=== PATIENT | female | born 1970 | race Caucasian/White ===

== ENCOUNTER → 2016-11-08 | Outpatient (CLI) | payer OTHER ==
[~2016-11-08] VITALS: Ht 167.6 cm; Wt 84.1 kg
[2016-11-08] VITALS (7 sets, daily range): BP systolic 114–155; BP diastolic 60–81; PULSE 67–70
[~2016-11-08] MED LIST: SINGULAIR 110 MG/TAB PO; ZYRTEC ALLERGY10 MG PO
== END ==
LOC: COL.RAD 11:56
DX: R91.1 Solitary pulmonary nodule (principal)
CPT/HCPCS: J2250

== ENCOUNTER → 2016-12-29 | Outpatient (CLI) | payer OTHER | LOC: COL.PUL 12-08 10:00 | DX: J45.909 Unspecified asthma, uncomplicated (principal) | CPT/HCPCS: J7674 ==

== ENCOUNTER 2017-01-11 09:24 | Outpatient (CLI) | payer OTHER ==
[~2017-01-11] VITALS: Ht 167.6 cm; Wt 85.9 kg
[2017-01-11] VITALS (12 sets, daily range): BP systolic 113–138; BP diastolic 37–86; PULSE 58–81
== END 2017-01-11 13:15 | disposition home or self-care (01) ==
LOC: COL.RAD 09:24
DX: R91.1 Solitary pulmonary nodule (principal); J45.909 Unspecified asthma, uncomplicated; G47.33 Obstructive sleep apnea (adult) (pediatric); R04.89 Hemorrhage from other sites in respiratory passages

== ENCOUNTER → 2020-12-06 | Outpatient (CLI) | payer OTHER ==
[2020-12-06 09:29] LABS: FASTING GLUCOSE 104 mg/dL (70-110)
[2020-12-06 09:48] LABS: MAGNESIUM 1.9 mg/dL (1.6-2.3)
[2020-12-06 10:19] LABS: 1/2 HR GLUCOSE 176 mg/dL (100-170)
[2020-12-06 10:46] LABS: 1 HR GLUCOSE 195 mg/dL (90-160)
[2020-12-06 20:00] LABS: FOLATE (FOLIC ACID) 11.7 ng/mL (2.0-20.0)
[2020-12-11 12:43] LABS: VITAMIN B1 149 nmol/L (70-180)
== END ==
LOC: COL.LAB 08:42
PROVIDERS: Psychiatry & Neurology Neurology
DX: G62.9 Polyneuropathy, unspecified (principal); E55.9 Vitamin D deficiency, unspecified; R73.02 Impaired glucose tolerance (oral); M79.7 Fibromyalgia; E53.9 Vitamin B deficiency, unspecified; E61.1 Iron deficiency; E53.1 Pyridoxine deficiency; E53.8 Deficiency of other specified B group vitamins; E61.2 Magnesium deficiency; Z79.899 Other long term (current) drug therapy